=== PATIENT | male | born 1985 | race Caucasian/White ===

== ENCOUNTER 2016-08-17 22:06 | Emergency (ER) | payer MEDICAID, OTHER ==
[2016-08-17] MEDS ORDERED: LORazepam 2 MG/ML MDV IVPUSH ONE (22:12)
[2016-08-17] MEDS ORDERED: LORazepam 2 MG/ML MDV ONE (22:12)
--- NOTE | 2016-08-17 22:24 | EDM.PDOC ---
ED HPI SEIZURE COMPLAINT - General Source of Information: Reports: EMS, Family History Limitations: Reports: No limitations <Leeann Fitzpatrick - Last Filed: 08/17/16 22:24> - General Source of Information: Reports: RN notes reviewed, Significant Other (Girlfriend ) History Limitations: Reports: Altered mental status <John Fatima - Last Filed: 08/18/16 01:49> - General Stated Complaint: [facility] Time Seen by Provider: 08/17/16 22:14 - History of Present Illness INITIAL COMMENTS - FREE TEXT/NARRATIVE: According to the patient's girlfriend, the patient might have been febrile last night, but his temperature was not checked. Today he was complaining of a headache, nausea, vomiting, and diarrhea. Otherwise, no recent illnesses. The patient's girlfriend states that she heard the patient collapsed in their bathroom around 21:15 tonight. She found him to be suffering a tonic seizure, lasting approximately 2 minutes. EMS was called, and due to close proximally, they arrived right away. About that time, the patient became postictal, and no subsequent seizures have been witnessed. The patient was combative en route. He received Versed 2 mg intranasally per EMS. Here in the ED, the patient remains postictal and uncooperative/combative. Attempts were made to sedate the patient with a total of 2 mg of Ativan and 5 mg Valium. This resulted in inadequate sedation, but concerns over the patient' s ability to protect his airway, therefore the decision was made to intubate him. The patient received propofol 40 mg/4 mL x 2, and was then easily intubated using a 8.0 ETT and Mac 3 blade. A propofol drip was then started at 50 mcg/kg/ min. The ET tube was secured and the patient sent to CT scan. Initial vent orders A/C 12/.450/5/.21 (John Fatima) - Related Data Allergies/ADRs: Allergies Allergy/AdvReac Type Severity Reaction Status Date / Time No Known Allergies Allergy Verified 08/18/16 00:07 Home Meds: Home Meds . [No Known Home Meds] 08/18/16 [History] Past Medical History Cardiovascular History: Reports: Other (see below) (Possible heart problem in the past - hypertension?) <John Fatima - Last Filed: 08/18/16 01:49> Social & Family History - Tobacco Use Smoking Status *Q: Former Smoker Years of Tobacco use: 10 Used Tobacco, but Quit: Yes Month Tobacco Last Used: november - Alcohol Use Days Per Week of Alcohol Use: 0 - Recreational Drug Use Recreational Drug Use: No <Leeann Fitzpatrick - Last Filed: 08/17/16 22:24> - Tobacco Use Smoking Status *Q: Former Smoker - Alcohol Use Alcohol Use History: Yes Alcohol Use Frequency: Socially - Recreational Drug Use Recreational Drug Use: No - Living Situation & Occupation Living situation: Reports: single, with significant other (Girlfriand) Occupation: employed ([employer]) <John Fatima - Last Filed: 08/18/16 01:49> ED ROS GENERAL - Review of Systems Review Of Systems: See Below Constitutional: Reports: no symptoms HEENT: Reports: No symptoms Respiratory: Reports: No Symptoms Cardiovascular: Reports: No symptoms Endocrine: Reports: no symptoms GI/Abdominal: Reports: No symptoms : Reports: no symptoms Musculoskeletal: Reports: no symptoms Skin: Reports: no symptoms Neurological: Reports: No Symptoms Psychiatric: Reports: No symptoms Hematologic/Lymphatic: Reports: no symptoms Immunologic: Reports: no symptoms <John Fatima - Last Filed: 08/18/16 01:49> - Physical Exam Exam: See Below Exam Limited By: Altered mental status General Appearance: WD/WN, obtunded Eye Exam: bilateral eye: normal inspection, PERRL Ears: normal external exam, hearing grossly normal Nose: normal inspection, no blood Throat/Mouth: Normal inspection, Normal lips, Normal teeth, Normal gums, Normal oropharynx, Normal voice, No airway compromise Head Exam: atraumatic, normocephalic Neck: normal inspection, full range of motion Respiratory/Chest: no respiratory distress, lungs clear, normal breath sounds, no accessory muscle use Cardiovascular: normal peripheral pulses, regular rate, rhythm, no gallop, no JVD, no murmur, no rub GI/Abdominal: normal bowel sounds, soft, no organomegaly, no distention, no abnormal bruit, no mass Neuro Exam (Abbreviated): unresponsive Extremities: normal inspection, normal range of motion, no pedal edema, normal capillary refill Skin Exam: Warm, Dry, Intact, Normal color, No rash <John Fatima - Last Filed: 08/18/16 01:49> Course <Leeann Fitzpatrick - Last Filed: 08/17/16 22:24> <John Fatima - Last Filed: 08/18/16 01:49> - Vital Signs Last Recorded V/S: Last Vital Signs Temp 36.6 C 08/17/16 22:10 Pulse 72 08/18/16 00:00 Resp 12 08/18/16 00:00 BP 107/60 08/18/16 00:00 Pulse Ox 96 08/18/16 00:00 - Orders/Labs/Meds Orders: Active Orders 24 hr Category Date Time Status Cardiac Monitoring [RC] . DIRECTED Care 08/17/16 22:21 Active Parmar Catheter Insertion [Insert Urinary Catheter] [OM. Care 08/17/16 23:15 Ordered PC] Q24H RT Ventilator, Adult [RC] ASDIRECTED Care 08/17/16 22:26 Active Urinary Catheter Assessment [RC] ASDIRECTED Care 08/17/16 23:03 Active Cervical Spine wo Cont [CT] Stat Exams 08/17/16 22:19 Taken Chest 1V Frontal [CR] Stat Exams 08/18/16 01:02 Ordered Head wo Cont [CT] Stat Exams 08/17/16 22:19 Taken Sodium Chloride 3% 500 ml Med 08/17/16 23:15 Active IV ASDIRECTED Medication Orders Sodium Chloride (Sodium Chloride 3%) 500 mls @ 30 mls/hr IV ASDIRECTED MAXIM Last Admin: 08/17/16 23:12 Dose: 30 mls/hr (Leeann Fitzpatrick) (John Fatima) Labs: Laboratory Tests 08/17/16 08/17/16 08/17/16 Range/Units 22:10 22:10 22:10 WBC 6.80 (4.23-9.07) K/mm3 RBC 5.11 (4.63-6.08) M/mm3 Hgb 13.5 L (13.7-17.5) gm/L Hct 39.9 L (40.1-51.0) % MCV 78.1 L (79.0-92.2) fl MCH 26.4 (25.7-32.2) pg MCHC 33.8 (32.2-35.5) g/dl RDW Std Deviation 33.2 L (35.1-43.9) fL Plt Count 210 (163-337) K/mm3 MPV 9.3 L (9.4-12.3) fl Neut % (Auto) 59.5 (34.0-67.9) % Lymph % (Auto) 23.7 (21.8-53.1) % Emmet % (Auto) 15.7 H (5.3-12.2) % Eos % (Auto) 0.7 L (0.8-7.0) Baso % (Auto) 0.3 (0.1-1.2) % Neut # 4.04 (1.78-5.38) K/mm3 Lymph # 1.61 (1.32-3.57) K/mm3 Emmet # 1.07 H (0.30-0.82) K/mm3 Eos # 0.05 (0.04-0.54) K/mm3 Baso # 0.02 (0.01-0.08) K/mm3 Manual Slide Review Abnormal smear Puncture Site ABG pH (7.35-7.45) ABG pCO2 (35.0-45.0) mmHg ABG pO2 (80.0-100.0) mmHg ABG HCO3 (22.0-26.0) meq/L ABG O2 Saturation (96.0-97.0) % ABG Base Excess (-2-2.0) A-a Gradient mmHg O2 Delivery Device FiO2 (21.00-100.00) % Tidal Volume cc PEEP cmH20 Sodium 115 L* (136-145) mEq/L Potassium 3.8 (3.5-5.1) mEq/L Chloride 81 L (98-107) mEq/L Carbon Dioxide 24 (21-32) mEq/L Anion Gap 13.8 (5-15) BUN 7 (7-18) mg/dL Creatinine 0.9 (0.7-1.3) mg/dL Est Cr Clr Drug Dosing TNP Estimated GFR (MDRD) > 60 (>60) mL/min BUN/Creatinine Ratio 7.8 L (14-18) Glucose 117 H (74-106) mg/dL Calcium 8.5 (8.5-10.1) mg/dL Phosphorus 2.8 (2.6-4.7) mg/dL Magnesium 1.4 L (1.8-2.4) mg/dl Total Bilirubin 0.9 (0.2-1.0) mg/dL AST 17 (15-37) U/L ALT 21 (16-63) U/L Alkaline Phosphatase 48 (46-116) U/L Total Protein 6.8 (6.4-8.2) g/dl Albumin 4.0 (3.4-5.0) g/dl Globulin 2.8 gm/dL Albumin/Globulin Ratio 1.4 (1-2) Urine Color (Yellow) Urine Appearance (Clear) Urine pH (5.0-8.0) Ur Specific [place] (1.005-1.030) Urine Protein (Negative) Urine Glucose (UA) (Negative) Urine Ketones (Negative) Urine Occult Blood (Negative) Urine Nitrite (Negative) Urine Bilirubin (Negative) Urine Urobilinogen (0.2-1.0) Ur Leukocyte Esterase (Negative) Urine RBC (0-5) /hpf Urine WBC (0-5) /hpf Ur Epithelial Cells (0-5) /hpf Urine Bacteria (FEW) /hpf Urine Mucus (FEW) /hpf Urine Yeast (NOT SEEN) Salicylates < 0.2 L (2.8-20) mg/dL Urine Opiates Screen (NEGATIVE) Ur Buprenorphine Scrn (NEGATIVE) Ur Oxycodone Screen (NEGATIVE) Urine Methadone Screen (NEGATIVE) Ur Propoxyphene Screen (NEGATIVE) Acetaminophen 0 L (10-30) ug/mL Ur Barbiturates Screen (NEGATIVE) Ur Tricyclics Screen (NEGATIVE) Ur Phencyclidine Scrn (NEGATIVE) Ur Amphetamine Screen (NEGATIVE) U Methamphetamines Scrn (NEGATIVE) U Benzodiazepines Scrn (NEGATIVE) U Cocaine Metab Screen (NEGATIVE) U Marijuana (THC) Screen (NEGATIVE) Ethyl Alcohol 0.00 (0.00) gm% 08/17/16 08/17/16 08/17/16 Range/Units 23:30 23:30 23:50 WBC (4.23-9.07) K/mm3 RBC (4.63-6.08) M/mm3 Hgb (13.7-17.5) gm/L Hct (40.1-51.0) % MCV (79.0-92.2) fl MCH (25.7-32.2) pg MCHC (32.2-35.5) g/dl RDW Std Deviation (35.1-43.9) fL Plt Count (163-337) K/mm3 MPV (9.4-12.3) fl Neut % (Auto) (34.0-67.9) % Lymph % (Auto) (21.8-53.1) % Emmet % (Auto) (5.3-12.2) % Eos % (Auto) (0.8-7.0) Baso % (Auto) (0.1-1.2) % Neut # (1.78-5.38) K/mm3 Lymph # (1.32-3.57) K/mm3 Emmet # (0.30-0.82) K/mm3 Eos # (0.04-0.54) K/mm3 Baso # (0.01-0.08) K/mm3 Manual Slide Review Puncture Site Rt radial ABG pH 7.39 (7.35-7.45) ABG pCO2 40.6 (35.0-45.0) mmHg ABG pO2 57.0 L (80.0-100.0) mmHg ABG HCO3 24 (22.0-26.0) meq/L ABG O2 Saturation 89.6 L (96.0-97.0) % ABG Base Excess -0.4 (-2-2.0) A-a Gradient 34 mmHg O2 Delivery Device Ventilator FiO2 21.00 (21.00-100.00) % Tidal Volume 450.0 cc PEEP 5.0 cmH20 Sodium (136-145) mEq/L Potassium (3.5-5.1) mEq/L Chloride (98-107) mEq/L Carbon Dioxide (21-32) mEq/L Anion Gap (5-15) BUN (7-18) mg/dL Creatinine (0.7-1.3) mg/dL Est Cr Clr Drug Dosing Estimated GFR (MDRD) (>60) mL/min BUN/Creatinine Ratio (14-18) Glucose (74-106) mg/dL Calcium (8.5-10.1) mg/dL Phosphorus (2.6-4.7) mg/dL Magnesium (1.8-2.4) mg/dl Total Bilirubin (0.2-1.0) mg/dL AST (15-37) U/L ALT (16-63) U/L Alkaline Phosphatase (46-116) U/L Total Protein (6.4-8.2) g/dl Albumin (3.4-5.0) g/dl Globulin gm/dL Albumin/Globulin Ratio (1-2) Urine Color Yellow (Yellow) Urine Appearance Clear (Clear) Urine pH 7.5 (5.0-8.0) Ur Specific [place] 1.025 (1.005-1.030) Urine Protein 1+ H (Negative) Urine Glucose (UA) Negative (Negative) Urine Ketones 2+ H (Negative) Urine Occult Blood Negative (Negative) Urine Nitrite Negative (Negative) Urine Bilirubin Negative (Negative) Urine Urobilinogen 1.0 (0.2-1.0) Ur Leukocyte Esterase Negative (Negative) Urine RBC 0-5 (0-5) /hpf Urine WBC 0-5 (0-5) /hpf Ur Epithelial Cells 0-5 (0-5) /hpf Urine Bacteria Not seen (FEW) /hpf Urine Mucus Not seen (FEW) /hpf Urine Yeast Not seen (NOT SEEN) Salicylates (2.8-20) mg/dL Urine Opiates Screen Negative (NEGATIVE) Ur Buprenorphine Scrn Negative (NEGATIVE) Ur Oxycodone Screen Negative (NEGATIVE) Urine Methadone Screen Negative (NEGATIVE) Ur Propoxyphene Screen Negative (NEGATIVE) Acetaminophen (10-30) ug/mL Ur Barbiturates Screen Negative (NEGATIVE) Ur Tricyclics Screen Negative (NEGATIVE) Ur Phencyclidine Scrn Negative (NEGATIVE) Ur Amphetamine Screen Negative (NEGATIVE) U Methamphetamines Scrn Negative (NEGATIVE) U Benzodiazepines Scrn Negative (NEGATIVE) U Cocaine Metab Screen Negative (NEGATIVE) U Marijuana (THC) Screen Negative (NEGATIVE) Ethyl Alcohol (0.00) gm% 08/18/16 Range/Units 01:08 WBC (4.23-9.07) K/mm3 RBC (4.63-6.08) M/mm3 Hgb (13.7-17.5) gm/L Hct (40.1-51.0) % MCV (79.0-92.2) fl MCH (25.7-32.2) pg MCHC (32.2-35.5) g/dl RDW Std Deviation (35.1-43.9) fL Plt Count (163-337) K/mm3 MPV (9.4-12.3) fl Neut % (Auto) (34.0-67.9) % Lymph % (Auto) (21.8-53.1) % Emmet % (Auto) (5.3-12.2) % Eos % (Auto) (0.8-7.0) Baso % (Auto) (0.1-1.2) % Neut # (1.78-5.38) K/mm3 Lymph # (1.32-3.57) K/mm3 Emmet # (0.30-0.82) K/mm3 Eos # (0.04-0.54) K/mm3 Baso # (0.01-0.08) K/mm3 Manual Slide Review Puncture Site ABG pH (7.35-7.45) ABG pCO2 (35.0-45.0) mmHg ABG pO2 (80.0-100.0) mmHg ABG HCO3 (22.0-26.0) meq/L ABG O2 Saturation (96.0-97.0) % ABG Base Excess (-2-2.0) A-a Gradient mmHg O2 Delivery Device FiO2 (21.00-100.00) % Tidal Volume cc PEEP cmH20 Sodium 115 L* (136-145) mEq/L Potassium 3.1 L (3.5-5.1) mEq/L Chloride 81 L (98-107) mEq/L Carbon Dioxide 24 (21-32) mEq/L Anion Gap 13.1 (5-15) BUN 9 (7-18) mg/dL Creatinine 0.7 (0.7-1.3) mg/dL Est Cr Clr Drug Dosing 162.85 Estimated GFR (MDRD) > 60 (>60) mL/min BUN/Creatinine Ratio 12.9 L (14-18) Glucose 110 H (74-106) mg/dL Calcium 8.3 L (8.5-10.1) mg/dL Phosphorus (2.6-4.7) mg/dL Magnesium (1.8-2.4) mg/dl Total Bilirubin (0.2-1.0) mg/dL AST (15-37) U/L ALT (16-63) U/L Alkaline Phosphatase (46-116) U/L Total Protein (6.4-8.2) g/dl Albumin (3.4-5.0) g/dl Globulin gm/dL Albumin/Globulin Ratio (1-2) Urine Color (Yellow) Urine Appearance (Clear) Urine pH (5.0-8.0) Ur Specific [place] (1.005-1.030) Urine Protein (Negative) Urine Glucose (UA) (Negative) Urine Ketones (Negative) Urine Occult Blood (Negative) Urine Nitrite (Negative) Urine Bilirubin (Negative) Urine Urobilinogen (0.2-1.0) Ur Leukocyte Esterase (Negative) Urine RBC (0-5) /hpf Urine WBC (0-5) /hpf Ur Epithelial Cells (0-5) /hpf Urine Bacteria (FEW) /hpf Urine Mucus (FEW) /hpf Urine Yeast (NOT SEEN) Salicylates (2.8-20) mg/dL Urine Opiates Screen (NEGATIVE) Ur Buprenorphine Scrn (NEGATIVE) Ur Oxycodone Screen (NEGATIVE) Urine Methadone Screen (NEGATIVE) Ur Propoxyphene Screen (NEGATIVE) Acetaminophen (10-30) ug/mL Ur Barbiturates Screen (NEGATIVE) Ur Tricyclics Screen (NEGATIVE) Ur Phencyclidine Scrn (NEGATIVE) Ur Amphetamine Screen (NEGATIVE) U Methamphetamines Scrn (NEGATIVE) U Benzodiazepines Scrn (NEGATIVE) U Cocaine Metab Screen (NEGATIVE) U Marijuana (THC) Screen (NEGATIVE) Ethyl Alcohol (0.00) gm% (John Fatima) Meds: Medications Generic Name Dose Route Start Last Admin Trade Name Freq PRN Reason Stop Dose Admin Sodium Chloride 500 mls @ 30 mls/hr 08/17/16 23:15 08/17/16 23:12 Sodium Chloride 3% IV 30 mls/hr ASDIRECTED MAXIM Administration Discontinued Medications Generic Name Dose Route Start Last Admin Trade Name Freq PRN Reason Stop Dose Admin Diazepam 5 mg 08/17/16 22:21 Valium IVPUSH 08/17/16 22:22 ONETIME ONE Diazepam Confirm 08/17/16 22:25 Valium Administered 08/17/16 22:26 Dose 10 mg .ROUTE .STK-MED ONE Propofol Confirm 08/17/16 22:41 Diprivan 100 Ml Administered 08/17/16 22:42 Dose 100 mls @ as directed .ROUTE .STK-MED ONE Magnesium Sulfate 2 gm/ Premix 50 mls @ 50 mls/hr 08/17/16 23:11 08/18/16 00: 15 IV 08/18/16 00:10 50 mls/hr ONETIME ONE Administration Propofol Confirm 08/18/16 00:57 Diprivan 100 Ml Administered 08/18/16 00:58 Dose 100 mls @ as directed .ROUTE .STK-MED ONE Lorazepam Confirm 08/17/16 22:12 Ativan Administered 08/17/16 22:13 Dose 2 mg .ROUTE .STK-MED ONE Ondansetron HCl Confirm 08/17/16 22:26 Zofran Administered 08/17/16 22:27 Dose 4 mg .ROUTE .STK-MED ONE (Leeann Fitzpatrick) (John Fatima) - Radiology Interpretation Free Text/Narrative:: CT of the head without contrast is read by [facility] as "No sign of acute intracranial injury or skull fracture." CT of the cervical spine without contrast is read by [facility] as "No sign of acute cervical spine injury." Portable chest radiograph appears to be grossly normal. Cardiac silhouette is within normal limits. No pulmonary vascular congestion. No pleural effusions. No focal infiltrate. No pneumothorax. The tip of the ET tube appears to be approximately 1 cm above the bettye. Formal read per the Radiologist pending. ( John Fatima) - Re-Assessments/Exams Free Text/Narrative Re-Assessment/Exam: 08/17/16 23:17 The patient's sodium is found to be severely depressed at 115, and his magnesium mildly depressed at 1.4. I have ordered discontinuation of his normal saline, and started hypertonic saline at 30 mL per hour. I have ordered a 2 g Mg-rider. The patient's girlfriend tells me that the patient ordinarily drinks a lot of water. Today he had water and Gatorade. He also takes numerous supplements, including CoQ10, Arginine, "Return to Spring", Yin Chiao, and Zn. 08/18/16 00:01 The patient's ABG, drawn approximately one hour after the patient was placed on the ventilator, demonstrates excellent ventilation. His oxygen saturation is 89.6%, however, he was fighting the ventilator at the time. Currently, his oxygen saturation is 95% while on FiO2 0.21. No changes to the ventilator at this time. 08/18/16 01:00 Test results discussed with the patient's girlfriend and friends at the bedside. I have ordered a repeat BMP to check on the progress of his sodium level, however, at this time the remainder of his workup is unremarkable. He will need to be admitted to the intensive care, however, there are no ICU beds available at this facility, therefore the patient will need to be transferred to [place]. We are aware that [facility] has no ICU beds. Calling [facility]. 08/18/16 01:[address] Martinez, Production Maintenance Mechanic at [facility], at 01:09. He accepts the patient for direct admission to their ICU. We will attempt to fly the patient. 08/18/16 01:32 The patient's sodium level is still 115. I have ordered a bolus of the hypertonic saline 100 mL over 30 minutes. His potassium is 3.1. I have ordered a 10 mEq potassium rider over one hour. (John Fatima) Departure <Leeann Fitzpatrick - Last Filed: 08/17/16 22:24> - Departure Time of Disposition: 01:17 Condition: serious <John Fatima - Last Filed: 08/18/16 01:49> - Departure Disposition: DC/Tfer to [facility] 02 Clinical Impression: Hyponatremia, New onset seizure, Hypomagnesemia Referrals: PCP,None [Primary Care Provider] -
[2016-08-17] MEDS ORDERED: Ondansetron 4 MG/2 ML SDV ONE (22:26)
[2016-08-17] MEDS ORDERED: Ondansetron 4 MG/2 ML SDV IVPUSH ONE (22:29)
[2016-08-17 22:51] LABS: ACETAMINOPHEN 0 ug/mL (10-30)
[2016-08-17] MEDS ORDERED: Magnesium Sulfate/Water 2 GM in Premix Bag 1 BAG IV ONE (23:11)
[2016-08-17] MEDS ORDERED: Sodium Chloride 3% 500 ML IV SCH (23:15)
[2016-08-18] MEDS ORDERED: Propofol 200 MG/20 ML SDV ONE (00:57)
[2016-08-18] MEDS ORDERED: Potassium Chloride 10 MEQ in Premix Bag 1 BAG IV STA (01:41)
[2016-08-18 02:49] VITALS: BP 109/78
--- NOTE | 2016-08-19 08:00 | CR ---
Chest: Portable view of the chest was obtained. Comparison: Previous chest x-ray of 01/28/14. Heart size and mediastinum are normal. Lungs are clear. Endotracheal tube is seen with tip lying slightly above the bettye at 1.4 cm. Bony structures are grossly intact. Impression: 1. Tip of endotracheal tube slightly above the bettye at 1.4 cm. 2. Nothing acute is otherwise seen on portable chest x-ray. Diagnostic code #3
--- NOTE | 2016-08-19 08:00 | CT ---
Head CT Technique: Multiple axial sections through the brain were obtained. Intravenous contrast was not utilized. Comparison: No previous intracranial imaging is available. Findings: Ventricles along with basal cisterns and sulci over the convexities are within normal limits for the patient's age. No abnormal parenchymal densities are seen. No evidence of intracranial hemorrhage. No midline shift or mass effect is seen. Bone window settings were reviewed which show no discrete calvarial abnormality. Mild mucosal thickening noted within the ethmoid sinuses and sphenoid sinus without air-fluid levels. Impression: 1. Mild sinus findings likely pre-existing. 2. Noncontrast head CT study is otherwise unremarkable. No acute intracranial abnormality is seen. Agree with preliminary report issued by [employer] (preliminary [facility] report dictated on 08/18/16, 12:20 AM Central Time) Diagnostic code #2
--- NOTE | 2016-08-19 10:31 | CT ---
CT cervical spine Technique: Multiple axial sections were obtained from above C1 inferiorly to the top of T2. Reconstructed sagittal and coronal images were reviewed. Findings: Vertebral body heights and disc spaces are maintained. Posterior skull base is intact. Vertebral bodies and posterior arches are intact. No fracture is seen. No bony central or bony neural foraminal stenosis is identified. No abnormal subluxation is seen on the reconstructed sagittal images. Mild scoliosis is present. Incomplete posterior C1 ring is seen which is a normal variant. Impression: 1. Mild scoliosis. Normal variant involving C1. 2. Nothing acute is identified on CT study of the cervical spine. Agree with preliminary report issued by [email or web address] (preliminary [facility] report dictated on 08/18/16, 12:22 AM Central Time) Diagnostic code #2
== END 2016-08-18 02:30 ==
LOC: JD.ED 22:06
PROC: 0BH17EZ Insertion of Endotracheal Airway into Trachea, Via Natural or Artificial Opening (ICD-10-PCS; principal; 2016-08-17)
PROC: 5A1935Z Respiratory Ventilation, Less than 24 Consecutive Hours (ICD-10-PCS; 2016-08-17)
DX: E87.1 Hypo-osmolality and hyponatremia (principal); R56.9 Unspecified convulsions; E83.42 Hypomagnesemia
CPT/HCPCS: 31500; 36415; 36600; 51702; 70450; 71010; 72125; 80048; 80053; 80306; 81001; 82803; 83735; 84100; 85025; 94002; 96361; 96365; 96366; 96368; 96374; 96375; 99291; 99292; G0480; J2060; J2405; J3360; J3480; J7040; 99285-25; J2704; J3475

== ENCOUNTER 2018-09-12 22:58 | Emergency (ER) | payer OTHER ==
[2018-09-12 23:14] VITALS: BP 127/84
--- NOTE | 2018-09-12 23:35 | EDM.PDOC ---
ED HPI GENERAL MEDICAL PROBLEM - General Chief Complaint: General Stated Complaint: hernando disease Time Seen by Provider: 09/12/18 23:14 Source of Information: Reports: Patient History Limitations: Reports: No Limitations - History of Present Illness INITIAL COMMENTS - FREE TEXT/NARRATIVE: This is a 32-year-old male. He is known to have a history of [place]' s disease. He takes hydrocortisone and fludrocortisone faithfully over the last 2 years. This evening and today he's been doing fine until about one or 2 hours ago he had sudden onset of abdominal cramping and diarrhea with nausea but no vomiting. He tripled his oral doses but he did not give himself the IM dexamethasone 50 mg as he wasn't vomiting. But he comes to the ER. He apparently ate some takeout food just before he started having the diarrhea but other people ate it as well and may have had no problems. He is having some abdominal cramps with the diarrhea. He denies any recent history of anorexia and vomiting weight loss excessive weakness low blood pressure. He does feel fatigued at this time. His blood pressure when he arrived was 127/84 with a pulse of 97. Abdomen Pain Score (Numeric/FACES): 5 - Related Data Allergies Allergy/AdvReac Type Severity Reaction Status Date / Time No Known Allergies Allergy Verified 08/18/16 00:07 Home Meds: Home Meds Dexamethasone Sod Phosphate [Dexamethasone Sodium Phosphate] 4 mg IJ ASDIRECTED 09/12/18 [History] Fludrocortisone [Fludrocortisone Acetate] 0.05 mg PO DAILY 09/12/18 [History] Hydrocortisone 10 mg PO DAILY 09/12/18 [History] Ondansetron [Zofran ODT] 4 mg PO Q6H PRN #12 tab.dis 09/13/18 [Rx] Past Medical History - Past Health History Medical/Surgical History: Denies Medical/Surgical History Cardiovascular History: Reports: Other (See Below) 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 Denies: Fever, Chills HEENT: Reports: No Symptoms Respiratory: Reports: No Symptoms Cardiovascular: Reports: No Symptoms Endocrine: Reports: No Symptoms GI/Abdominal: Reports: Abdominal Pain, Diarrhea, Nausea. Denies: Constipation, Vomiting : Reports: No Symptoms Musculoskeletal: Reports: No Symptoms Skin: Reports: No Symptoms Neurological: Reports: No Symptoms Psychiatric: Reports: No Symptoms Hematologic/Lymphatic: Reports: No Symptoms ED EXAM, GENERAL - Physical Exam Exam: See Below Exam Limited By: No Limitations General Appearance: Alert, WD/WN, No Apparent Distress Eye Exam: Bilateral Eye: Normal Inspection Ears: Normal External Exam, Normal Canal, Normal TMs Nose: Normal Inspection Throat/Mouth: Normal Inspection, Normal Lips, Normal Oropharynx, Normal Voice, No Airway Compromise Head: Normocephalic Neck: Supple Respiratory/Chest: No Respiratory Distress, Lungs Clear, Normal Breath Sounds Cardiovascular: Regular Rate, Rhythm, No Murmur GI/Abdominal: Soft, Other (Bowel sounds are decreased, he has some soreness of the abdomen on palpation but it is not localized) Back Exam: Normal Inspection, Full Range of Motion Extremities: Normal Inspection, Normal Range of Motion Neurological: Alert, Oriented Psychiatric: Normal Affect, Normal Mood Skin Exam: Warm, Dry Course - Vital Signs Last Recorded V/S: Last Vital Signs Temp 98.2 F 09/12/18 23:06 Pulse 97 09/12/18 23:06 Resp 16 09/12/18 23:06 BP 127/84 09/12/18 23:06 Pulse Ox 100 09/12/18 23:06 - Orders/Labs/Meds Orders: Active Orders 24 hr Category Date Time Status Dextrose 5%-0.9% NaCl [Dextrose 5%-Normal Saline] 1,000 Med 09/12/18 23:45 Active ml IV ASDIRECTED Medication Orders Dextrose/Sodium Chloride (Dextrose 5%-Normal Saline) 1,000 mls @ 1,000 mls/hr IV ASDIRECTED MAXIM Last Admin: 09/12/18 23:43 Dose: 1,000 mls/hr Labs: Laboratory Tests 09/12/18 09/12/18 09/12/18 Range/Units 23:24 23:24 23:31 WBC 15.15 H (4.23-9.07) K/mm3 RBC 5.55 (4.63-6.08) M/mm3 Hgb 16.2 (13.7-17.5) gm/L Hct 47.4 (40.1-51.0) % MCV 85.4 (79.0-92.2) fl MCH 29.2 (25.7-32.2) pg MCHC 34.2 (32.2-35.5) g/dl RDW Std Deviation 38.5 (35.1-43.9) fL Plt Count 261 (163-337) K/mm3 MPV 9.3 L (9.4-12.3) fl Neutrophils % (Manual) 73 H (40-60) % Band Neutrophils % 1 (0-10) % Lymphocytes % (Manual) 19 L (20-40) % Atypical Lymphs % 0 % Monocytes % (Manual) 5 (2-10) % Eosinophils % (Manual) 2 (0.8-7.0) % Basophils % (Manual) 0 L (0.2-1.2) Platelet Estimate Adequate Plt Morphology Comment Normal RBC Morph Comment Normal Sodium 139 (136-145) mEq/L Potassium 3.3 L (3.5-5.1) mEq/L Chloride 100 (98-107) mEq/L Carbon Dioxide 27 (21-32) mEq/L Anion Gap 15.3 H (5-15) BUN 16 (7-18) mg/dL Creatinine 1.0 (0.7-1.3) mg/dL Est Cr Clr Drug Dosing 111.90 mL/min Estimated GFR (MDRD) > 60 (>60) mL/min BUN/Creatinine Ratio 16.0 (14-18) Glucose 100 (74-106) mg/dL POC Glucose 100 (70-105) mg/dL Calcium 9.6 (8.5-10.1) mg/dL Magnesium 2.0 (1.8-2.4) mg/dl Total Bilirubin 0.5 (0.2-1.0) mg/dL AST 13 L (15-37) U/L ALT 15 L (16-63) U/L Alkaline Phosphatase 51 (46-116) U/L Total Protein 7.8 (6.4-8.2) g/dl Albumin 4.2 (3.4-5.0) g/dl Globulin 3.6 gm/dL Albumin/Globulin Ratio 1.2 (1-2) 09/13/18 09/13/18 09/13/18 Range/Units 00:46 01:58 01:58 WBC 13.51 H (4.23-9.07) K/mm3 RBC 4.83 (4.63-6.08) M/mm3 Hgb 14.3 (13.7-17.5) gm/L Hct 41.7 (40.1-51.0) % MCV 86.3 (79.0-92.2) fl MCH 29.6 (25.7-32.2) pg MCHC 34.3 (32.2-35.5) g/dl RDW Std Deviation 38.3 (35.1-43.9) fL Plt Count 224 (163-337) K/mm3 MPV 9.2 L (9.4-12.3) fl Neutrophils % (Manual) 90 H (40-60) % Band Neutrophils % 2 (0-10) % Lymphocytes % (Manual) 7 L (20-40) % Atypical Lymphs % 0 % Monocytes % (Manual) 1 L (2-10) % Eosinophils % (Manual) 0 L (0.8-7.0) % Basophils % (Manual) 0 L (0.2-1.2) Platelet Estimate Adequate Plt Morphology Comment Normal RBC Morph Comment Normal Sodium 140 (136-145) mEq/L Potassium 4.2 (3.5-5.1) mEq/L Chloride 105 (98-107) mEq/L Carbon Dioxide 26 (21-32) mEq/L Anion Gap 13.2 (5-15) BUN 15 (7-18) mg/dL Creatinine 0.9 (0.7-1.3) mg/dL Est Cr Clr Drug Dosing 124.34 mL/min Estimated GFR (MDRD) > 60 (>60) mL/min BUN/Creatinine Ratio 16.7 (14-18) Glucose 92 (74-106) mg/dL POC Glucose 231 H (70-105) mg/dL Calcium 8.3 L (8.5-10.1) mg/dL Magnesium (1.8-2.4) mg/dl Total Bilirubin (0.2-1.0) mg/dL AST (15-37) U/L ALT (16-63) U/L Alkaline Phosphatase (46-116) U/L Total Protein (6.4-8.2) g/dl Albumin (3.4-5.0) g/dl Globulin gm/dL Albumin/Globulin Ratio (1-2) Meds: Medications Generic Name Dose Route Start Last Admin Trade Name Freq PRN Reason Stop Dose Admin Dextrose/Sodium Chloride 1,000 mls @ 1,000 mls/hr 09/12/18 23:45 09/12/18 23: 43 Dextrose 5%-Normal Saline IV 1,000 mls/hr ASDIRECTED MAXIM Administration Discontinued Medications Generic Name Dose Route Start Last Admin Trade Name Freq PRN Reason Stop Dose Admin Hydrocortisone Sodium Succinate 100 mg 09/12/18 23:39 09/12/18 23:43 Solu-Cortef IVPUSH 09/12/18 23:40 100 mg ONETIME ONE Administration Ondansetron HCl 4 mg 09/13/18 00:11 09/13/18 00:14 Zofran IVPUSH 09/13/18 00:12 4 mg ONETIME ONE Administration Potassium Bicarbonate 20 meq 09/13/18 00:52 09/13/18 01:11 Effer-K PO 09/13/18 00:53 20 meq ONETIME ONE Administration - Re-Assessments/Exams Free Text/Narrative Re-Assessment/Exam: 09/13/18 02:51 I spoke to the patient regarding his white count down to 13 and his sodium now 140 and potassium 4.2, I believe his calcium dropped a little because of all the fluids and gave him I'm sure it will come back to normal since it was normal to start with. He is to triple up on his hydrocortisone over the next 3 days as per his doctor's instructions and stay on his fludrocortisone on his normal dose. He knows if he starts vomiting and can't stop or having multiple bouts of diarrhea he needs to return to the ER. Otherwise he will follow-up with his family doctor this coming week. Departure - Departure Time of Disposition: 02:53 Disposition: Home, Self-Care 01 Condition: Fair Clinical Impression: Nausea, Hypokalemia, Addisons disease Diarrhea Qualifiers: Diarrhea type: unspecified type Qualified Code(s): R19.7 - Diarrhea, unspecified - Discharge Information *PRESCRIPTION DRUG MONITORING PROGRAM REVIEWED*: Not Applicable *COPY OF PRESCRIPTION DRUG MONITORING REPORT IN PATIENT HERIBERTO: Not Applicable Prescriptions: Ondansetron [Zofran ODT] 4 mg PO Q6H PRN #12 tab.dis PRN Reason: Nausea Instructions: Nausea and Vomiting, Adult, [id number] Referrals: PCP,None [Primary Care Provider] - Forms: ED Department Discharge, ED Return to Work/School Form Additional Instructions: Triple up on the hydrocortisone for the next 3 days as per 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, stay on liquids only for the next 24 hours but if you need to eat something then crackers or yogurt or a banana, gradually start food back with no meats or vegetables for at least 3 days, if you start having multiple bouts of vomiting or diarrhea return to the ER immediately, follow up with your family doctor this week for recheck - My Orders Last 24 Hours: My Active Orders 09/12/18 23:45 Dextrose 5%-0.9% NaCl [Dextrose 5%-Normal Saline] 1,000 ml IV ASDIRECTED - Assessment/Plan Last 24 Hours: My Active Orders 09/12/18 23:45 Dextrose 5%-0.9% NaCl [Dextrose 5%-Normal Saline] 1,000 ml IV ASDIRECTED
[2018-09-12] MEDS ORDERED: Hydrocortisone Sodium Succinate 100 MG/2 ML SDV IVPUSH ONE (23:39)
[2018-09-12] MEDS ORDERED: Dextrose 5%-0.9% NaCl 1,000 ML IV SCH (23:45)
[2018-09-13] MEDS ORDERED: Ondansetron 4 MG/2 ML SDV IVPUSH ONE (00:11)
[2018-09-13] MEDS ORDERED: Potassium Bicarbonate/Cit Ac 20 MEQ Effervescent Tab PO ONE (00:52)
== END 2018-09-13 03:02 | disposition home or self-care (01) ==
LOC: JD.ED 22:58
DX: E87.6 Hypokalemia (principal); E27.1 Primary adrenocortical insufficiency; R11.0 Nausea; R19.7 Diarrhea, unspecified; Z79.899 Other long term (current) drug therapy
CPT/HCPCS: 36415; 80048; 80053; 82962; 83735; 85007; 85027; 96361; 96374; 96375; 99284; A9270; J1720; J2405; J7042

== ENCOUNTER 2024-12-14 14:05 | Emergency (ER) | payer BC, OTHER ==
[2024-12-14 14:53] LABS: BASOPHILS ABSOLUTE AUTO 0.0 K/mm3 (0.0-0.2); BASOPHILS PERCENT AUTO 0.2 % (0.0-1.0); EOSINOPHILS ABSOLUTE AUTO 0.0 K/mm3 (0.0-0.4); EOSINOPHILS PERCENT AUTO 0.5 % (0.0-6.0); IMMATURE GRAN ABSOLUTE AUTO 0.04 K/mm3 (0.00-0.05); IMMATURE GRAN PERCENT AUTO 0.5 % (0.0-0.4); LYMPHOCYTES ABSOLUTE AUTO 1.8 K/mm3 (1.0-4.8); LYMPHOCYTES PERCENT AUTO 20.0 % (24.0-44.0); MEAN PLATELET VOLUME 9.0 fl (9.4-12.4); MONOCYTES ABSOLUTE AUTO 0.4 K/mm3 (0.0-0.8); MONOCYTES PERCENT AUTO 4.5 % (0.0-8.0); NEUTROPHILS ABSOLUTE AUTO 6.5 K/mm3 (1.8-7.7); NEUTROPHILS PERCENT AUTO 74.3 % (41.0-71.0); NRBC ABSOLUTE 0.00 (0.00-0.02); NRBC PERCENT 0.0 % (0.0-0.2); PLATELET COUNT,PLT 282 K/mm3 (150-400); RED BLOOD CELL COUNT 4.89 M/mm3 (4.52-5.90); WHITE BLOOD CELL COUNT,WBC 8.73 K/mm3 (3.9-11.3)
[2024-12-14] MEDS: Hydrocortisone Sodium Succinate 100 MG/2 ML SDV IVPUSH ONE (14:57)
[2024-12-14 15:16] LABS: INR 1.01
[2024-12-14 15:17] LABS: PTT,PARTIAL THROMBOPLSTIN TIME 26.5 SECONDS (21.7-31.4)
[2024-12-14 15:26] LABS: A/G RATIO 1.3 (1-2); ALANINE AMINOTRANSFERASE,ALT 20 U/L (16-63); ASPARTATE AMNIOTRANSFERASE,AST 11 U/L (15-37); BILIRUBIN TOTAL 0.7 mg/dL (0.2-1.0); BLOOD UREA NITROGEN,BUN 12 mg/dL (7-18); CARBON DIOXIDE,CO2 28 mEq/L (21-32); CHLORIDE,CL 100 mEq/L (98-107); CREATININE 0.8 mg/dL (0.7-1.3); EST CRCL DRUG DOSING (CG) 130.73 mL/min; ESTIMATED GFR 115 mL/min (>60); GLUCOSE RANDOM 101 mg/dL (70-99); POTASSIUM,K 3.5 mEq/L (3.5-5.1); PROTEIN TOTAL,TP 7.0 g/dl (6.4-8.2); SODIUM,NA 137 mEq/L (136-145); TROPONIN I HIGH SENSITIVITY < 4 pg/mL (<=76)
[2024-12-14] MEDS: Ketorolac 30 MG/ML SDV IVPUSH ONE (16:33)
[2024-12-14 21:20] VITALS: BP 135/87; PULSE 78
== END 2024-12-14 17:04 | disposition home or self-care (01) ==
LOC: JD.ED 14:05
DX: R07.89 Other chest pain (principal); Z79.899 Other long term (current) drug therapy
CPT/HCPCS: 36415; 71045; 80053; 83735; 83880; 84484; 85025; 85610; 85730; 93005; 96374; 99285; J1720